=== PATIENT | female | born 1930 | race Caucasian/White ===

== ENCOUNTER 2018-04-17 13:53 | Inpatient (IN) | payer MEDICARE, BC ==
[~2018-04-17] VITALS: Ht 165.1 cm; Wt 58.6 kg
[2018-04-17 16:06] VITALS: BP 135/76
[2018-04-17] MEDS ORDERED: NAMENDA10 MG PO (17:02)
[2018-04-17] MEDS ORDERED: BYSTOLIC10 MG PO (17:02)
[2018-04-17] MEDS ORDERED: SYNTHROID112 MCG PO (17:02)
[2018-04-17] MEDS ORDERED: ADULT ASPIRIN81 MG PO (17:03)
[2018-04-17] MEDS ORDERED: MULTIPLE VITAMI1 TA5 PO (17:03)
[2018-04-17] MEDS ORDERED: GLUCOSAMINE & C1 CA2 PO (17:04)
[2018-04-17] MEDS ORDERED: CALCIUM 500-VI1 EACH PO (17:05)
[2018-04-17] MEDS ORDERED: ASPIRIN 32325 MG/TAB PO ×2 (17:20→17:27)
[2018-04-17] MEDS ORDERED: SENNA PLUS 50 M1 TA1 PO (17:22)
[2018-04-17] MEDS ORDERED: TYLENOL325 M1 PO (17:23)
[2018-04-17] MEDS ORDERED: CEPHALEXIN500 M1 PO (17:23)
[2018-04-17] MEDS ORDERED: OMEGA 3 FISH O1 EACH PO (17:24)
[2018-04-17] MEDS ORDERED: ULTRAM50 M1 PO (17:25)
[2018-04-17] MEDS ORDERED: PRINIVIL20 M1 PO (17:28)
[2018-04-17] MEDS ORDERED: ASPIRIN E.C. 8181 MG PO (17:28)
[2018-04-17 19:47] VITALS: BP 123/75
[2018-04-18 06:24] VITALS: BP 186/92
[2018-04-18 07:02] VITALS: BP 100/57
[2018-04-18 18:10] VITALS: BP 185/90
[2018-04-19 06:39] VITALS: BP 212/89
[2018-04-19 18:14] VITALS: BP 166/81
[2018-04-20 06:21] VITALS: BP 202/99
[2018-04-20 07:07] VITALS: BP 161/78
[2018-04-20 08:02] LABS: BASO # 0.1 (0.02-0.10); EOS # 0.2 (0.04-0.40); EOS % 3.6 % (1.0-5.0); HEMATOCRIT 31.9 % (37.0-47.0); HEMOGLOBIN 10.4 g/dL (12.5-16.0); LYMPH# 1.4 (1.50-4.00); MEAN CELL VOLUME 95 fl (78-100); MEAN CORPUSCULAR HEMOGLOBIN 31 pg (27-31); MEAN CORPUSCULAR HGB CONC 33 g/dL (33-37); MEAN PLATELET VOLUME 9.1 fl (7.4-10.4); MONO # 0.7 (0.20-0.80); PLATELET COUNT 235 K/mm3 (130-400); RED BLOOD COUNT 3.36 M/mm3 (4.10-5.30); RED CELL DISTRIBUTION WIDTH 14.2 % (11.5-14.5); WHITE BLOOD COUNT 6.5 K/mm3 (4.8-10.8)
[2018-04-20 08:11] LABS: ALBUMIN 2.9 g/dL (3.5-5.0); CALCIUM 8.2 mg/dL (8.4-10.2); POTASSIUM 4.3 mmol/L (3.6-5.0); TOTAL BILIRUBIN 1.2 mg/dL (0.2-1.3); TOTAL PROTEIN 5.5 g/dL (6.3-8.2)
[2018-04-20 14:30] LABS: PH-URINE 6.5 (5.0 - 8.0); URINE APPEARANCE CLEAR; URINE BILIRUBIN NEGATIVE (NEGATIVE); URINE BLOOD NEGATIVE (NEGATIVE); URINE COLOR YELLOW; URINE GLUCOSE NEGATIVE (NEGATIVE); URINE KETONE NEGATIVE (NEGATIVE); URINE LEUKOCYTE ESTERASE NEGATIVE (NEGATIVE); URINE MUCUS PRESENT (NOT PRESENT); URINE NITRATE NEGATIVE (NEGATIVE); URINE PROTEIN(semi-quant) TRACE mg/dL (NEGATIVE); URINE UROBILINOGEN NORMAL (NORMAL); URINE WBC 0-1 /hpf (0-3)
[2018-04-20 18:13] VITALS: BP 168/81
[2018-04-21 05:39] VITALS: BP 185/88
[2018-04-21 18:40] VITALS: BP 197/82
[2018-04-21 20:46] VITALS: BP 211/85
[2018-04-21 20:52] LABS: PH-URINE 5.5 (5.0 - 8.0); URINE APPEARANCE CLEAR; URINE COLOR YELLOW
[2018-04-21 20:53] LABS: URINE BILIRUBIN NEGATIVE (NEGATIVE); URINE BLOOD NEGATIVE (NEGATIVE); URINE GLUCOSE NEGATIVE (NEGATIVE); URINE KETONE NEGATIVE (NEGATIVE); URINE LEUKOCYTE ESTERASE NEGATIVE (NEGATIVE); URINE NITRATE NEGATIVE (NEGATIVE); URINE PROTEIN(semi-quant) TRACE mg/dL (NEGATIVE); URINE UROBILINOGEN NORMAL (NORMAL); URINE WBC 0-1 /hpf (0-3)
[2018-04-26] MEDS ORDERED: FERROUS SULFATE65 MG PO (13:29)
[2018-04-26] MEDS ORDERED: MIRALAX17 GM PO (13:43)
== END 2018-04-21 20:59 | disposition short-term general hospital (02) | DRG 560 ==
LOC: MED/SURG 13:53
PROVIDERS: Nurse Practitioner; ADMIT Nurse Practitioner Primary Care
DX: S72.001D Fracture of unspecified part of neck of right femur, subsequent encounter for closed fracture with routine healing (principal); N30.00 Acute cystitis without hematuria; T84.020A Dislocation of internal right hip prosthesis, initial encounter; E87.1 Hypo-osmolality and hyponatremia; F03.90 Unspecified dementia, unspecified severity, without behavioral disturbance, psychotic disturbance, mood disturbance, and anxiety; I10 Essential (primary) hypertension; E78.5 Hyperlipidemia, unspecified
CPT/HCPCS: J3010

== ENCOUNTER → 2018-06-22 | Outpatient (CLI) | payer MEDICARE, BC ==
[2018-05-21 12:18] VITALS: BP 189/95
[~2018-06-22] MED LIST: ADULT ASPIRIN81 MG PO; ALDACTONE 25MG25 MG PO; ASPIRIN 32325 MG/TAB PO; ASPIRIN E.C. 8181 MG PO; ATIVAN0.5 MG PO; BYSTOLIC10 MG PO; CALCIUM 500-VI1 EACH PO; CEPHALEXIN500 M1 PO; FERROUS SU220 MG/52 PO; FERROUS SULFATE65 MG PO; FISH OIL 1000MG1 CAP PO; FOLIC ACID 40400 MCG PO; GLUCOSAMINE & C1 CA2 PO; LABETALOL HYDR200 MG PO; MEMANTINE HCL5 MG PO; MIRALAX17 GM PO; MUCINEX 60600 MG/TA1 PO; MULTIPLE VITAMI1 TA5 PO; NAMENDA10 MG PO; NORVASC 10MG10 MG PO; OMEGA 3 FISH O1 EACH PO; PANTOPRAZOLE SO40 MG PO; PEG 335017 GM/Dose PO; PREDNISONE20 M1 PO; PRINIVIL20 M1 PO; PROAIR HFA0.09 MG/AC IH; SENNA PLUS 50 M1 TA1 PO; SENNA-TIME S 501 TAB PO; SYNTHROID112 MCG PO; THIAMINE HCL100 M1 PO; TRAMADOL 50 MG TAB PO; TYLENOL325 M1 PO; ULTRAM50 M1 PO
== END ==
LOC: RAD 09:26
DX: Z09 Encounter for follow-up examination after completed treatment for conditions other than malignant neoplasm (principal); Z96.641 Presence of right artificial hip joint; Z87.39 Personal history of other diseases of the musculoskeletal system and connective tissue